=== PATIENT | female | born 1975 | race Caucasian/White ===

== ENCOUNTER 2018-04-27 07:14 | Outpatient (CLI) | payer OTHER | END 2018-04-27 07:28 | disposition home or self-care (01) | LOC: LAB 07:14 | DX: R07.89 Other chest pain (principal); R10.84 Generalized abdominal pain ==

== ENCOUNTER → 2018-06-23 06:24 | Outpatient (CLI) | payer OTHER | END | disposition home or self-care (01) | LOC: LAB 06:24 | DX: R10.2 Pelvic and perineal pain (principal); E03.8 Other specified hypothyroidism; R07.89 Other chest pain ==

== ENCOUNTER 2018-06-28 11:56 | Outpatient (CLI) | payer OTHER ==
[2018-06-29] MEDS ORDERED: CODE1TAB37 PO (11:37)
[2018-06-29] MEDS ORDERED: DOXYCYCLINE HY100 MG PO (11:37)
== END 2018-06-28 12:01 | disposition home or self-care (01) ==
LOC: LAB 11:56
DX: N92.5 Other specified irregular menstruation (principal)

== ENCOUNTER 2018-06-29 06:48 | Day surgery (SDC) | payer OTHER ==
[2018-06-29] MEDS ORDERED: CODE1TAB37 PO (11:37)
[2018-06-29] MEDS ORDERED: DOXYCYCLINE HY100 MG PO (11:37)
== END 2018-06-29 15:40 | disposition home or self-care (01) ==
LOC: U 06:48 → CIR.AMB 06:48
DX: N84.0 Polyp of corpus uteri (principal); D25.0 Submucous leiomyoma of uterus

== ENCOUNTER 2018-09-20 00:44 | Emergency (ER) | payer OTHER ==
[~2018-09-20] VITALS: Ht 157.5 cm; Wt 67.6 kg
[~2018-09-20 00:44] MED LIST: CODE1TAB37 PO; DOXYCYCLINE HY100 MG PO
[2018-09-20] MEDS ORDERED: ZANTAC150 MG PO (11:53)
[2018-09-20] MEDS ORDERED: INTESTINEX680 M1 PO (11:53)
[2018-09-20] MEDS ORDERED: FLAGYL500MG PO (11:53)
== END 2018-09-20 12:47 | disposition home or self-care (01) ==
LOC: ER 00:44
DX: K52.89 Other specified noninfective gastroenteritis and colitis (principal)